=== PATIENT | female | born 1945 | race Caucasian/White ===

== ENCOUNTER → 2017-03-26 | Day surgery (SDC) | payer OTHER ==
[~2017-03-26] VITALS: Ht 144.7 cm; Wt 64.4 kg
[~2017-03-26] MED LIST: .; ADVIL200 M1 PO; ATIVAN0.5 MG PO; BENADRYL ALLERG25 M5 PO; CELEXA40 MG PO; CILOXAN 5 ML5 M1 OT; CIPROFLOXACIN 55 M1 OP; CITALOPRAM40 MG PO; CYMBALTA60 MG PO; DEXILANT30 MG PO; DOXYCYCLINE100 MG PO; DULOXETINE HCL60 MG PO; FLECTOR1.3% TP; FLONASE ALLERG9.9 ML NAS; HYDR25T PO; HYDROCHLOROTHIA25 M1 PO; LISINOPRIL AND1 TA1 PO; LOPRESSOR PO; LORAZEPAM0.5 MG PO; Lopressor25 MG PO; MEGA BIOTIN10000 MCG PO; METFORMIN500 MG PO; METOCLOPRAMIDE H5 M1 PO; MOTRIN800 MG PO; MYLICON, MYLANT80 MG PO; PANTOPRAZOLE SO40 MG PO; PREDNISONE10 MG PO; PROAIR HFA8.5 GM IH; ZANTAC 150150 MG PO; ZANTAC 7575 M1 PO; ZOFRAN 4 MG ED2 TAB PO
--- NOTE | ~2017-03-26 | O ---
[place], [place] OPERATIVE NOTE NAME: ACE RANDHAWA V [facility] #: [id number] UNIT #: [id number] ROOM: DOCTOR: DEV JARRETT MD BIRTHDATE: [birth year] DOS: 03/26/2017 PREOPERATIVE DIAGNOSIS: Chronic otitis media with effusion. POSTOPERATIVE DIAGNOSIS: Chronic otitis media with effusion. OPERATION: Right tympanostomy tube insertion. SURGEON: Dr. Jarrett. ANESTHESIA: General. OPERATIVE FINDINGS AND PROCEDURE: The patient was taken to the operating room for right MT. Following induction of general anesthesia, the patient was positioned supine on the OR table and draped in the standard fashion for ear surgery. The surgical microscope was brought into the operative field. The right ear was examined. Myringotomy was performed. Standard Derik tympanostomy tube was inserted, and topical Ciprofloxacin drops were instilled. The patient tolerated the procedure well, was awakened, and transported to PACU in satisfactory condition. DEV JARRETT MD CM:OPRECORD:OPERATIVE NOTE [id number] DEV JARRETT MD 03/26/17 1000 interface
[2017-03-26 08:30] VITALS: BP 205/76
[2017-03-26 09:30] VITALS: BP 151/55
[2017-03-26 09:45] VITALS: BP 147/50
[2017-03-26 10:00] VITALS: BP 162/55
== END | disposition home or self-care (01) ==
LOC: SDC 02:34
DX: H65.491 Other chronic nonsuppurative otitis media, right ear (principal); I10 Essential (primary) hypertension; E11.9 Type 2 diabetes mellitus without complications; K21.9 Gastro-esophageal reflux disease without esophagitis; F41.9 Anxiety disorder, unspecified; F32.9 Major depressive disorder, single episode, unspecified; Z98.51 Tubal ligation status; Z90.49 Acquired absence of other specified parts of digestive tract; Z90.710 Acquired absence of both cervix and uterus; Z98.890 Other specified postprocedural states; Z83.3 Family history of diabetes mellitus; Z82.49 Family history of ischemic heart disease and other diseases of the circulatory system

== ENCOUNTER → 2021-09-06 | Outpatient (CLI) | payer MEDICARE | END | disposition home or self-care (01) | LOC: COVID19 15:30 | PROVIDERS: ATTEND Internal Medicine | DX: Z20.822 Contact with and (suspected) exposure to COVID-19 (principal) ==

== ENCOUNTER → 2025-04-30 | Outpatient (CLI) | payer MEDICARE, OTHER ==
[~2025-04-30] MED LIST changes: +GADOTERATE MEGLUMINE 7.5 MMOL/15 ML VIAL IV ONE
== END | disposition home or self-care (01) ==
LOC: MRI 04-28 12:30
PROVIDERS: ATTEND Orthopaedic Surgery
DX: M47.816 Spondylosis without myelopathy or radiculopathy, lumbar region (principal); R22.41 Localized swelling, mass and lump, right lower limb; M51.369 Other intervertebral disc degeneration, lumbar region without mention of lumbar back pain or lower extremity pain; M48.07 Spinal stenosis, lumbosacral region